=== PATIENT | female | born 1960 | race African-American/Black ===

== ENCOUNTER 2018-03-23 13:45 | Outpatient (CLI) | payer OTHER | END 2018-03-23 13:46 | disposition home or self-care (01) | LOC: BICRAD 13:45 | PROVIDERS: ATTEND Internal Medicine | DX: Z02.71 Encounter for disability determination (principal) | CPT/HCPCS: 71046 ==

== ENCOUNTER 2019-07-17 15:16 | Emergency (ER) | payer SELFPAY ==
[2019-07-17] MEDS ORDERED: ISOVUE-370 76%-LOCM 1 ML ONE (15:52)
[2019-07-17 16:16] LABS: #Basophils 0.1 thou/uL (0.0-0.2); #Eosinphils 0.1 thou/uL (0.0-0.7); #Monocytes 0.6 thou/uL (0.11-0.59); #Neutrophils 3.3 thou/uL (1.40-6.50); %Basophils 1.2 % (0.0-1.0); %Eosinophils 1.3 % (0.0-10.0); %Lymphocytes 33.4 % (21.0-51.0); %Neutrophils 54.1 % (42.0-75.0); Hemoglobin 14.4 g/dL (12.0-16.0); Mean Corpuscular HGB CONC 33.7 g/dL (32.0-36.0); Mean Corpuscular Hemoglobin 30.6 pg (27.0-31.0); Mean Corpuscular Volume 90.6 fL (78.0-98.0); Mean Platelet Volume 5.3 fL (7.4-10.4); Platelet Count 290 thou/uL (130-400); RBC Distribution Width 12.1 % (11.5-14.5); Red Blood Cell (RBC) Count 4.71 mill/uL (4.20-5.40); White Blood Cell (WBC) Count 6.1 thou/uL (4.8-10.8)
[2019-07-17] MEDS ORDERED: Fluorescein Opthalmic Strip ONE (16:33)
[2019-07-17] MEDS ORDERED: Proparacaine 0.5% Opth 15 ML BOT ONE (16:33)
[2019-07-17 16:39] LABS: ALT (SGPT) 18 U/L (8-55); AST (SGOT) 26 U/L (5-34); Albumin 4.4 g/dL (3.4-4.8); Alkaline Phosphatase 74 U/L (40-150); Anion Gap 6 mmol/L (10-20); BUN (Urea Nitrogen) 12 mg/dL (9.8-20.1); Bilirubin, Total 0.4 mg/dL (0.2-1.2); Calc. Creatinine Clearance 0 mL/min (70-130); Calcium 10.3 mg/dL (7.8-10.44); Carbon Dioxide 30 mmol/L (23-31); Chloride 106 mmol/L (98-107); Estimated GFR-MDRD 88; Globulin 3.4 g/dL (2.4-3.5); Glucose 104 mg/dL (80-115); Lipase 66 U/L (8-78); Potassium 3.9 mmol/L (3.5-5.1); Protein, Total 7.8 g/dL (6.0-8.3); Sodium 138 mmol/L (136-145)
--- NOTE | 2019-07-17 17:15 | RAD ---
EXAM: CHEST TWO VIEWS: 07/17/19 HISTORY: Chest pain. Intermittent epigastric pain for one week. COMPARISON: 03/23/18. FINDINGS: Left ICD. Heart size is normal. The lungs are clear. IMPRESSION: No significant acute intrathoracic disease. Stable from prior study. POS: [facility]
[2019-07-17 17:42] LABS: Bilirubin Negative (Negative); Blood, Urine Trace (Negative); Clarity Clear (Clear); Glucose, Urine (Dipstick) Normal (Negative); Leukocyte Negative Leu/uL (Negative); Nitrite Negative (Negative); Protein, Urine (Dipstick) Negative (Neg-Trace); RBC/HPF 0-3 HPF (0-3); Squamous Epithelial 0-3 HPF (0-3); Urobilinogen Normal mg/dL (Less than 2); WBC/HPF 0-3 HPF (0-3)
[2019-07-17 17:43] LABS: Bacteria/HPF 1+ HPF (None Seen)
--- NOTE | 2019-07-17 17:48 | CT ---
CT abdomen and pelvis with IV contrast HISTORY: Abdomen pain. FINDINGS: Lung bases are clear. Gallbladder is surgically absent. Dystrophic calcification within the spleen in an area of decreased density is stable and may be related to remote trauma. No free air or free fluid. Mild fibroid involvement of the uterus. Degenerative changes lumbar spine. Appendix is not inflamed. Rectal and distal sigmoid colon are distended with fecal material. Prominent fecal material throughout the right colon and remainder of the colon also. IMPRESSION: No evidence of bowel obstruction or inflammation. Constipation. Status post cholecystectomy. Chronic-type findings are stable.
[2019-07-17] MEDS ORDERED: Magnesium Citrate 300 ML BOT ONE (18:33)
== END 2019-07-17 19:56 | disposition home or self-care (01) ==
LOC: ERS 15:16
DX: K59.00 Constipation, unspecified (principal); R07.9 Chest pain, unspecified; H57.11 Ocular pain, right eye; I25.10 Atherosclerotic heart disease of native coronary artery without angina pectoris; E78.5 Hyperlipidemia, unspecified; E78.00 Pure hypercholesterolemia, unspecified; I10 Essential (primary) hypertension; Z79.82 Long term (current) use of aspirin; Z79.899 Other long term (current) drug therapy
CPT/HCPCS: 36415; 71046; 74177; 80053; 81003; 81015; 83690; 84484; 85025; 93005; Q9966

== ENCOUNTER 2020-05-22 13:31 | Emergency (ER) | payer SELFPAY ==
[2020-05-22] MEDS ORDERED: Iopamidol 370 76% 100 ML VIAL ONE (13:45)
[2020-05-22 14:24] LABS: #Basophils 0.1 thou/uL (0.0-0.2); #Eosinphils 0.1 thou/uL (0.0-0.7); #Lymphocytes 1.4 thou/uL (1.20-3.40); #Monocytes 0.7 thou/uL (0.11-0.59); #Neutrophils 3.5 thou/uL (1.40-6.50); %Eosinophils 2.2 % (0.0-10.0); %Lymphocytes 24.8 % (21.0-51.0); %Monocytes 11.6 % (0.0-10.0); %Neutrophils 60.4 % (42.0-75.0); Hemoglobin 14.6 g/dL (12.0-16.0); Mean Corpuscular Hemoglobin 28.3 pg (27.0-31.0); Mean Corpuscular Volume 88.2 fL (78.0-98.0); Mean Platelet Volume 5.9 fL (7.4-10.4); Platelet Count 331 thou/uL (130-400); RBC Distribution Width 12.6 % (11.5-14.5); Red Blood Cell (RBC) Count 5.16 mill/uL (4.20-5.40); White Blood Cell (WBC) Count 5.7 thou/uL (4.8-10.8)
[2020-05-22 14:47] LABS: ALT (SGPT) 17 U/L (8-55); AST (SGOT) 27 U/L (5-34); Albumin 4.3 g/dL (3.4-4.8); Alkaline Phosphatase 90 U/L (40-110); Anion Gap 11 mmol/L (10-20); BUN (Urea Nitrogen) 7 mg/dL (9.8-20.1); Bilirubin, Total 0.6 mg/dL (0.2-1.2); Calc. Creatinine Clearance 0 mL/min (70-130); Calcium 9.9 mg/dL (7.8-10.44); Carbon Dioxide 27 mmol/L (23-31); Chloride 105 mmol/L (98-107); Estimated GFR-MDRD 85; Globulin 4.1 g/dL (2.4-3.5); Glucose 103 mg/dL (80-115); Lipase 55 U/L (8-78); Potassium 3.9 mmol/L (3.5-5.1); Protein, Total 8.4 g/dL (6.0-8.3); Sodium 139 mmol/L (136-145)
[2020-05-22 15:31] LABS: Bacteria/HPF 4+ HPF (None Seen); Bilirubin Negative (Negative); Blood, Urine Trace (Negative); Clarity Turbid (Clear); Glucose, Urine (Dipstick) Normal (Negative); Ketone, Urine Negative (Negative); Leukocyte 25 Leu/uL (Negative); Nitrite Negative (Negative); Protein, Urine (Dipstick) Negative (Neg-Trace); RBC/HPF 0-3 HPF (0-3); Specific Gravity, Urine 1.009 (1.002-1.036); Urobilinogen Normal mg/dL (Less than 2); pH, Urine 5.5 (5.0-9.0)
--- NOTE | 2020-05-22 16:14 | CT ---
CT ABDOMEN AND PELVIS WITH IV CONTRAST: 05/22/20 HISTORY: Abdominal pain, left sided. COMPARISON: 07/02/19. There are mild atelectatic changes in the lung bases. The patient is post cholecystectomy. The liver, pancreas, adrenal glands and kidneys are normal. Dystrophic calcifications in the spleen i n an area of decreased density is stable. No free air, free fluid or lymphadenopathy is seen in the abdomen or pelvis. The small bowel loops ar e not abnormally dilated. There is colonic diverticulosis without pericolonic inflammatory changes. A fibroid uterus is again noted. There are vascular calcifications without evidence of aneurysmal dilatation of the abdominal aorta. T here are degenerative changes in the spine. A normal appearing appendix is present. A small hiatal he rnia is present. IMPRESSION: No acute process. POS: AUTUMN
== END 2020-05-22 16:32 | disposition home or self-care (01) ==
LOC: ERS 13:31
DX: R10.9 Unspecified abdominal pain (principal); R10.812 Left upper quadrant abdominal tenderness; R10.814 Left lower quadrant abdominal tenderness; I25.10 Atherosclerotic heart disease of native coronary artery without angina pectoris; E78.5 Hyperlipidemia, unspecified; E78.00 Pure hypercholesterolemia, unspecified; I10 Essential (primary) hypertension; Z79.82 Long term (current) use of aspirin; Z79.899 Other long term (current) drug therapy
CPT/HCPCS: 36415; 74177; 80053; 81003; 81015; 83605; 83690; 85025; 93005; Q9967

== ENCOUNTER 2021-04-15 13:09 | Emergency (ER) | payer SELFPAY ==
[~2021-04-15 13:09] MED LIST: Iopamidol-370 76% 500 ML 1 ML ONE
[2021-04-15 14:46] LABS: #Lymphocytes 0.8 thou/uL (1.20-3.40); #Monocytes 0.5 thou/uL (0.11-0.59); #Neutrophils 3.5 thou/uL (1.40-6.50); %Basophils 0.1 % (0.0-1.0); %Eosinophils 0.1 % (0.0-10.0); %Lymphocytes 16.1 % (21.0-51.0); %Monocytes 9.8 % (0.0-10.0); Hemoglobin 13.7 g/dL (12.0-16.0); Mean Corpuscular Hemoglobin 28.4 pg (27.0-31.0); Mean Corpuscular Volume 88.7 fL (78.0-98.0); Mean Platelet Volume 5.9 fL (7.4-10.4); Platelet Count 202 thou/uL (130-400); RBC Distribution Width 11.9 % (11.5-14.5); Red Blood Cell (RBC) Count 4.82 mill/uL (4.20-5.40); White Blood Cell (WBC) Count 4.7 thou/uL (4.8-10.8)
[2021-04-15 15:09] LABS: ALT (SGPT) 19 U/L (8-55); AST (SGOT) 47 U/L (5-34); Alkaline Phosphatase 71 U/L (40-110); Anion Gap 14 mmol/L (10-20); BUN (Urea Nitrogen) 11 mg/dL (9.8-20.1); Bilirubin, Total 0.9 mg/dL (0.2-1.2); Calc. Creatinine Clearance 0 mL/min (70-130); Calcium 9.2 mg/dL (7.8-10.44); Carbon Dioxide 23 mmol/L (23-31); Chloride 105 mmol/L (98-107); Globulin 3.7 g/dL (2.4-3.5); Glucose 95 mg/dL (80-115); Lipase 54 U/L (8-78); Protein, Total 7.7 g/dL (5.8-8.1); Sodium 138 mmol/L (136-145)
[2021-04-15] MEDS ORDERED: Fentanyl 100 MCG/2 ML VIAL ONE (15:55)
[2021-04-15 16:06] LABS: Bilirubin Small (Negative); Blood, Urine Large (Negative); Glucose, Urine (Dipstick) Negative (Negative); Ketone, Urine 15 mg/dL (Negative); Leukocyte Negative (Negative); Nitrite Negative (Negative); Protein, Urine (Dipstick) Trace mg/dL (Neg-Trace); Specific Gravity, Urine 1.025 (1.005-1.030); pH, Urine 5.5 (5.0-9.0)
[2021-04-15 16:20] LABS: Clarity Hazy (Clear); WBC/HPF 0-3 HPF (0-3)
[2021-04-15 16:21] LABS: Bacteria/HPF 1+ HPF (None Seen); Squamous Epithelial 21-50 HPF (0-3)
== END 2021-04-15 17:53 | disposition home or self-care (01) ==
LOC: ERS 13:09
DX: R10.32 Left lower quadrant pain (principal); R50.9 Fever, unspecified; R30.0 Dysuria; R61 Generalized hyperhidrosis; I25.10 Atherosclerotic heart disease of native coronary artery without angina pectoris; I10 Essential (primary) hypertension; E78.5 Hyperlipidemia, unspecified; E78.00 Pure hypercholesterolemia, unspecified; Z79.82 Long term (current) use of aspirin; Z79.899 Other long term (current) drug therapy
CPT/HCPCS: 36415; 51701; 74177; 80053; 81003; 81015; 83690; 85025; 87086; 93005; 96374; J3010; Q9967

== ENCOUNTER 2021-04-17 00:34 | Emergency (ER) | payer SELFPAY ==
[2021-04-17 01:15] LABS: #Lymphocytes 0.8 thou/uL (1.20-3.40); #Monocytes 0.3 thou/uL (0.11-0.59); #Neutrophils 3.6 thou/uL (1.40-6.50); %Basophils 0.5 % (0.0-1.0); %Eosinophils 0.1 % (0.0-10.0); %Lymphocytes 16.4 % (21.0-51.0); %Monocytes 6.7 % (0.0-10.0); %Neutrophils 76.4 % (42.0-75.0); Hemoglobin 13.6 g/dL (12.0-16.0); Mean Corpuscular Hemoglobin 30.1 pg (27.0-31.0); Mean Corpuscular Volume 88.5 fL (78.0-98.0); Platelet Count 196 thou/uL (130-400); Red Blood Cell (RBC) Count 4.53 mill/uL (4.20-5.40); White Blood Cell (WBC) Count 4.7 thou/uL (4.8-10.8)
[2021-04-17] MEDS ORDERED: Acetaminophen 500 MG TAB ONE (01:17)
[2021-04-17 01:21] LABS: Bacteria/HPF None Seen HPF (None Seen); Bilirubin Negative (Negative); Blood, Urine 3+ (Negative); Clarity Clear (Clear); Glucose, Urine (Dipstick) Normal (Negative); Ketone, Urine 80 mg/dL (Negative); Leukocyte 25 Leu/uL (Negative); Nitrite Negative (Negative); Protein, Urine (Dipstick) 30 mg/dL (Neg-Trace); RBC/HPF Greater than 50 HPF (0-3); Specific Gravity, Urine 1.026 (1.002-1.036); Squamous Epithelial 0-3 HPF (0-3); Urobilinogen 6 mg/dL (Less than 2); pH, Urine 5.5 (5.0-9.0)
[2021-04-17 01:34] LABS: ALT (SGPT) 23 U/L (8-55); AST (SGOT) 61 U/L (5-34); Albumin 3.8 g/dL (3.4-4.8); Alkaline Phosphatase 62 U/L (40-110); Anion Gap 16 mmol/L (10-20); BUN (Urea Nitrogen) 10 mg/dL (9.8-20.1); Calc. Creatinine Clearance 0 mL/min (70-130); Carbon Dioxide 20 mmol/L (23-31); Chloride 106 mmol/L (98-107); Globulin 3.5 g/dL (2.4-3.5); Glucose 103 mg/dL (80-115); Lipase 49 U/L (8-78); Protein, Total 7.3 g/dL (5.8-8.1); Sodium 138 mmol/L (136-145)
== END 2021-04-17 04:51 | disposition home or self-care (01) ==
LOC: ERS 00:34
DX: N39.0 Urinary tract infection, site not specified (principal); R07.89 Other chest pain; E78.5 Hyperlipidemia, unspecified; E78.00 Pure hypercholesterolemia, unspecified; I10 Essential (primary) hypertension
CPT/HCPCS: 36415; 74022; 74176; 80053; 81003; 81015; 83605; 83690; 84484; 85025; 87040; 87086; 93005

== ENCOUNTER 2021-04-18 12:58 | Inpatient (IN) | payer SELFPAY ==
[2021-04-18] MEDS ORDERED: Cefepime 2 GM VIAL ONE (14:14)
[2021-04-18] MEDS ORDERED: Azithromycin 500 MG VIAL ONE (14:14)
[2021-04-18] MEDS ORDERED: cefTRIAXone\\ROCEPHIN 2 GM VIAL ONE (14:24)
[2021-04-18 14:33] LABS: ALT (SGPT) 76 U/L (8-55); AST (SGOT) 247 U/L (5-34); Albumin 4.3 g/dL (3.4-4.8); Alkaline Phosphatase 75 U/L (40-110); Anion Gap 21 mmol/L (10-20); BUN (Urea Nitrogen) 16 mg/dL (9.8-20.1); Calc. Creatinine Clearance 0 mL/min (70-130); Carbon Dioxide 20 mmol/L (23-31); Chloride 104 mmol/L (98-107); Globulin 4.9 g/dL (2.4-3.5); Glucose 139 mg/dL (80-115); Lipase 44 U/L (8-78); Potassium 3.9 mmol/L (3.5-5.1); Protein, Total 9.2 g/dL (5.8-8.1); Sodium 141 mmol/L (136-145)
[2021-04-18 14:48] LABS: CK (CPK) 16583 U/L (29-168)
[2021-04-18 15:09] LABS: Hemoglobin 17.2 g/dL (12.0-16.0); Mean Corpuscular HGB CONC 31.8 g/dL (32.0-36.0); Mean Corpuscular Hemoglobin 28.4 pg (27.0-31.0); Mean Corpuscular Volume 89.3 fL (78.0-98.0); Mean Platelet Volume 6.3 fL (7.4-10.4); Platelet Count 211 thou/uL (130-400); RBC Distribution Width 12.4 % (11.5-14.5); Red Blood Cell (RBC) Count 6.07 mill/uL (4.20-5.40); White Blood Cell (WBC) Count 7.9 thou/uL (4.8-10.8)
[2021-04-18 15:11] LABS: #Basophils 0.1 thou/uL (0.0-0.2); #Lymphocytes 0.5 thou/uL (1.20-3.40); #Monocytes 0.6 thou/uL (0.11-0.59); #Neutrophils 6.7 thou/uL (1.40-6.50); %Basophils 1.2 % (0.0-1.0); %Eosinophils 0.5 % (0.0-10.0); %Lymphocytes 5.9 % (21.0-51.0); %Neutrophils 85.4 % (42.0-75.0)
[2021-04-18] MEDS ORDERED: Aspirin Chewable 81 MG TAB ONE (15:21)
[2021-04-18] MEDS ORDERED: Ondansetron ODT 4 MG TAB PO PRN (17:12)
[2021-04-18] MEDS ORDERED: Ondansetron PF 4 MG/2 ML Vial IVP PRN (17:12)
[2021-04-18] MEDS ORDERED: Senokot S 8.6-50 MG TAB PO PRN (17:12)
[2021-04-18] MEDS ORDERED: Acetaminophen 650 MG Suppository PR PRN (17:12)
[2021-04-18 17:45] LABS: Lactic Acid 1.3 mmol/L (0.5-2.2)
[2021-04-18 17:54] LABS: Troponin I 0.247 ng/mL (< 0.028)
[2021-04-18 18:15] LABS: Magnesium 1.7 mg/dL (1.6-2.6); Phosphorus 2.8 mg/dL (2.3-4.7)
[2021-04-18] MEDS: Lactated Ringer's 1,000 ML IV SCH (18:45)
[2021-04-18 20:28] LABS: Troponin I 0.215 ng/mL (< 0.028)
[2021-04-18 21:43] LABS: INR-International Normal Ratio 1.1; PTT 30.3 sec (22.9-36.1); Prothrombin Time 14.6 sec (12.0-14.7)
[2021-04-18 21:57] LABS: Anion Gap 14 mmol/L (10-20); BUN (Urea Nitrogen) 20 mg/dL (9.8-20.1); Calc. Creatinine Clearance 47 mL/min (70-130); Calcium 7.6 mg/dL (7.8-10.44); Carbon Dioxide 19 mmol/L (23-31); Chloride 111 mmol/L (98-107); Glucose 120 mg/dL (80-115); Potassium 3.5 mmol/L (3.5-5.1); Sodium 140 mmol/L (136-145)
[2021-04-18 22:00] LABS: CKMB 158.6 ng/mL (0-6.6); Critical Call CKMB RESULT DECREASING
[2021-04-18 22:22] LABS: CK (CPK) 16305 U/L (29-168)
[2021-04-18 22:30] LABS: #Lymphocytes 0.6 thou/uL (1.20-3.40); #Monocytes 0.7 thou/uL (0.11-0.59); #Neutrophils 6.3 thou/uL (1.40-6.50); %Basophils 0.1 % (0.0-1.0); %Lymphocytes 7.6 % (21.0-51.0); %Monocytes 8.6 % (0.0-10.0); %Neutrophils 83.7 % (42.0-75.0); Hemoglobin 13.4 g/dL (12.0-16.0); Mean Corpuscular HGB CONC 31.9 g/dL (32.0-36.0); Mean Corpuscular Hemoglobin 28.2 pg (27.0-31.0); Mean Corpuscular Volume 88.3 fL (78.0-98.0); Mean Platelet Volume 6.1 fL (7.4-10.4); Platelet Count 214 thou/uL (130-400); RBC Distribution Width 12.1 % (11.5-14.5); Red Blood Cell (RBC) Count 4.75 mill/uL (4.20-5.40); White Blood Cell (WBC) Count 7.5 thou/uL (4.8-10.8)
[2021-04-19] MEDS: Acetaminophen 325 MG TAB PO PRN ×2 (02:20→11:32)
[2021-04-19] MEDS: Lactated Ringer's 1,000 ML IV SCH ×4 (02:25→18:00)
[2021-04-19 03:28] LABS: Amphetamine Not Detected (NotDetected); Barbiturates Screen Not Detected (NotDetected); Benzodiazepine Screen Not Detected (NotDetected); Cocaine Metabolite Screen Not Detected (NotDetected); Medtox Control Line Valid? VALID (VALID); Medtox Reader # READER 4; Methadone Not Detected (NotDetected); Methamphetamine Not Detected (NotDetected); Opiate Screen Not Detected (NotDetected); Oxycodone Screen Not Detected (NotDetected); Phencyclidine (PCP) Not Detected (NotDetected); THC/Cannabinoid Screen Not Detected (NotDetected); Tricyclic Screen Not Detected (NotDetected)
[2021-04-19 05:34] LABS: #Lymphocytes 1.1 thou/uL (1.20-3.40); #Neutrophils 8.7 thou/uL (1.40-6.50); %Basophils 0.1 % (0.0-1.0); %Eosinophils 0.1 % (0.0-10.0); %Lymphocytes 10.1 % (21.0-51.0); %Monocytes 9.2 % (0.0-10.0); %Neutrophils 80.6 % (42.0-75.0); Hemoglobin 13.9 g/dL (12.0-16.0); Mean Corpuscular HGB CONC 31.3 g/dL (32.0-36.0); Mean Corpuscular Hemoglobin 27.9 pg (27.0-31.0); Mean Corpuscular Volume 89.1 fL (78.0-98.0); Mean Platelet Volume 6.5 fL (7.4-10.4); Platelet Count 221 thou/uL (130-400); RBC Distribution Width 12.4 % (11.5-14.5); Red Blood Cell (RBC) Count 4.99 mill/uL (4.20-5.40); White Blood Cell (WBC) Count 10.9 thou/uL (4.8-10.8)
[2021-04-19 05:45] LABS: ALT (SGPT) 83 U/L (8-55); AST (SGOT) 305 U/L (5-34); Alkaline Phosphatase 52 U/L (40-110); Anion Gap 15 mmol/L (10-20); BUN (Urea Nitrogen) 22 mg/dL (9.8-20.1); Bilirubin, Total 0.5 mg/dL (0.2-1.2); Calc. Creatinine Clearance 41 mL/min (70-130); Calcium 8.2 mg/dL (7.8-10.44); Carbon Dioxide 17 mmol/L (23-31); Chloride 113 mmol/L (98-107); Globulin 3.4 g/dL (2.4-3.5); Glucose 109 mg/dL (80-115); Magnesium 1.7 mg/dL (1.6-2.6); Phosphorus 3.4 mg/dL (2.3-4.7); Potassium 3.4 mmol/L (3.5-5.1); Protein, Total 6.4 g/dL (5.8-8.1); Sodium 142 mmol/L (136-145)
[2021-04-19 05:57] LABS: CK (CPK) 16410 U/L (29-168)
[2021-04-19] MEDS ORDERED: Potassium Chloride 20 MEQ in Premix Bag 1 BAG IVPB SCH (06:15)
[2021-04-19] MEDS ORDERED: Magnesium 2 GM/50 ML 2 GM in Premix Bag 1 BAG IVPB SCH (06:15)
[2021-04-19] MEDS: Cyclobenzaprine 10 MG TAB PO PRN (08:47)
[2021-04-19] MEDS: Senokot S 8.6-50 MG TAB PO SCH (08:49)
[2021-04-19] MEDS: Aspirin 325 MG TAB PO SCH (08:49)
[2021-04-19] MEDS: Lisinopril 20 MG TAB PO SCH (08:49)
[2021-04-19] MEDS: Carvedilol 25 MG TAB PO SCH ×2 (08:49→16:56)
[2021-04-19] MEDS: Stress 600 With Zinc 1 TAB PO SCH (08:49)
[2021-04-19] MEDS: Enoxaparin Sodium 40 MG/0.4 ML SYRINGE SC SCH (08:50)
[2021-04-19 09:42] LABS: Bilirubin Negative (Negative); Blood, Urine Large (Negative); Glucose, Urine (Dipstick) Negative (Negative); Ketone, Urine Trace mg/dL (Negative); Leukocyte Negative (Negative); Nitrite Negative (Negative); Protein, Urine (Dipstick) 100 mg/dL (Neg-Trace); Specific Gravity, Urine 1.015 (1.005-1.030); Urobilinogen 0.2 mg/dL (Less than 2); pH, Urine 5.5 (5.0-9.0)
[2021-04-19 09:46] LABS: Clarity Clear (Clear)
[2021-04-19 09:48] LABS: Bacteria/HPF 3+ HPF (None Seen); RBC/HPF 0-3 HPF (0-3); Squamous Epithelial 0-3 HPF (0-3); WBC/HPF 0-3 HPF (0-3)
[2021-04-19 09:50] LABS: Urine Culture Reflex Yes Yes
[2021-04-19] MEDS: traMADol HCl 50 MG TAB PO PRN ×2 (12:37→16:56)
[2021-04-19] MEDS: Acetaminophen 500 MG TAB PO SCH ×2 (13:00→19:22)
[2021-04-19 13:41] LABS: Anion Gap 15 mmol/L (10-20); BUN (Urea Nitrogen) 21 mg/dL (9.8-20.1); Calc. Creatinine Clearance 38 mL/min (70-130); Calcium 8.3 mg/dL (7.8-10.44); Carbon Dioxide 15 mmol/L (23-31); Chloride 114 mmol/L (98-107); Glucose 132 mg/dL (80-115); Potassium 3.7 mmol/L (3.5-5.1); Sodium 140 mmol/L (136-145)
[2021-04-19] MEDS: cefTRIAXone\\ROCEPHIN 1 GM in Sodium Chloride 0.9% 100 ML IVPB SCH (14:29)
[2021-04-19] MEDS: Azithromycin 500 MG in Sodium Chloride 0.9% 250 ML 250 ML IVPB SCH (15:28)
[2021-04-19] MEDS: Morphine 2 MG/ML VIAL SLOW IVP PRN (21:22)
[2021-04-20] MEDS: Lactated Ringer's 1,000 ML IV SCH ×4 (01:27→18:19)
[2021-04-20] MEDS: Acetaminophen 500 MG TAB PO SCH ×3 (03:49→22:33)
[2021-04-20] MEDS: Morphine 2 MG/ML VIAL SLOW IVP PRN ×2 (05:04→11:34)
[2021-04-20 05:12] LABS: #Lymphocytes 0.8 thou/uL (1.20-3.40); #Monocytes 0.4 thou/uL (0.11-0.59); #Neutrophils 6.7 thou/uL (1.40-6.50); %Basophils 0.2 % (0.0-1.0); %Lymphocytes 10.1 % (21.0-51.0); %Monocytes 4.9 % (0.0-10.0); %Neutrophils 84.8 % (42.0-75.0); Hemoglobin 13.4 g/dL (12.0-16.0); Mean Corpuscular HGB CONC 31.5 g/dL (32.0-36.0); Mean Corpuscular Volume 88.8 fL (78.0-98.0); Mean Platelet Volume 6.2 fL (7.4-10.4); Platelet Count 242 thou/uL (130-400); RBC Distribution Width 12.5 % (11.5-14.5); Red Blood Cell (RBC) Count 4.77 mill/uL (4.20-5.40); White Blood Cell (WBC) Count 7.9 thou/uL (4.8-10.8)
[2021-04-20 05:32] LABS: Anion Gap 10 mmol/L (10-20); BUN (Urea Nitrogen) 17 mg/dL (9.8-20.1); Calc. Creatinine Clearance 51 mL/min (70-130); Calcium 8.5 mg/dL (7.8-10.44); Carbon Dioxide 21 mmol/L (23-31); Chloride 115 mmol/L (98-107); Glucose 108 mg/dL (80-115); Magnesium 1.8 mg/dL (1.6-2.6); Potassium 3.6 mmol/L (3.5-5.1); Sodium 142 mmol/L (136-145)
[2021-04-20 06:06] LABS: CK (CPK) 9551 U/L (29-168)
[2021-04-20] MEDS: Lisinopril 20 MG TAB PO SCH (08:50)
[2021-04-20] MEDS: Aspirin 325 MG TAB PO SCH (08:51)
[2021-04-20] MEDS: Enoxaparin Sodium 40 MG/0.4 ML SYRINGE SC SCH (08:51)
[2021-04-20] MEDS: Senokot S 8.6-50 MG TAB PO SCH (08:51)
[2021-04-20] MEDS: Carvedilol 25 MG TAB PO SCH ×2 (08:51→15:55)
[2021-04-20] MEDS: Stress 600 With Zinc 1 TAB PO SCH (08:52)
[2021-04-20] MEDS: traMADol HCl 50 MG TAB PO PRN ×2 (09:22→15:54)
[2021-04-20 11:50] LABS: Syphilis Antibody Nonreactive (Nonreactive); Syphilis Antibody Index 0.05 S/CO (<1.00 Non-Reactive)
[2021-04-20 11:51] LABS: HIV (1/2) Antibody/Antigen Non-Reactive (NonReactive); HIV 1/2 INDEX 0.12 S/CO (<1.00)
[2021-04-20] MEDS: cefTRIAXone\\ROCEPHIN 1 GM in Sodium Chloride 0.9% 100 ML IVPB SCH (13:47)
[2021-04-20] MEDS: Cyclobenzaprine 10 MG TAB PO PRN (13:47)
[2021-04-20] MEDS ORDERED: Clopidogrel Bisulfate 300 MG TAB PO SCH (15:15)
[2021-04-20] MEDS: Azithromycin 500 MG in Sodium Chloride 0.9% 250 ML 250 ML IVPB SCH (15:51)
[2021-04-20] MEDS ORDERED: Cyclobenzaprine 10 MG TAB PO PRN (17:41)
[2021-04-20] MEDS: Atorvastatin Calcium 40 MG TAB PO SCH (21:57)
[2021-04-21] MEDS: Lactated Ringer's 1,000 ML IV SCH ×3 (00:38→19:32)
[2021-04-21] MEDS: Acetaminophen 500 MG TAB PO SCH ×3 (04:49→21:05)
[2021-04-21 05:00] LABS: ALT (SGPT) 66 U/L (8-55); AST (SGOT) 248 U/L (5-34); Albumin 2.6 g/dL (3.4-4.8); Alkaline Phosphatase 50 U/L (40-110); Anion Gap 12 mmol/L (10-20); BUN (Urea Nitrogen) 10 mg/dL (9.8-20.1); Bilirubin, Total 0.5 mg/dL (0.2-1.2); Calc. Creatinine Clearance 73 mL/min (70-130); Calcium 8.5 mg/dL (7.8-10.44); Carbon Dioxide 25 mmol/L (23-31); Chloride 109 mmol/L (98-107); Globulin 3.1 g/dL (2.4-3.5); Glucose 94 mg/dL (80-115); Magnesium 1.5 mg/dL (1.6-2.6); Potassium 3.3 mmol/L (3.5-5.1); Protein, Total 5.7 g/dL (5.8-8.1); Sodium 143 mmol/L (136-145)
[2021-04-21 05:12] LABS: CK (CPK) 6048 U/L (29-168)
[2021-04-21 06:28] LABS: Band 21 % (5-11); Hemoglobin 12.7 g/dL (12.0-16.0); Lymphocytes 6 % (21-51); MDiff Complete? YES; Mean Corpuscular Hemoglobin 30.2 pg (27.0-31.0); Mean Platelet Volume 6.5 fL (7.4-10.4); Monocytes 1 % (0-10); Neutrophil 71 % (42-75); Platelet Count 213 thou/uL (130-400); RBC Distribution Width 12.5 % (11.5-14.5); Reactive Lymphocytes 1 % (0-10); Red Blood Cell (RBC) Count 4.19 mill/uL (4.20-5.40); White Blood Cell (WBC) Count 8.7 thou/uL (4.8-10.8)
[2021-04-21] MEDS ORDERED: Magnesium Sulfate 2 GM in Sodium Chloride 0.9% 100 ML IVPB SCH (06:45)
[2021-04-21] MEDS ORDERED: Magnesium 2 GM/50 ML 2 GM in Premix Bag 1 BAG IVPB SCH (07:00)
[2021-04-21] MEDS: Polyethylene Glycol 3350 17 GM Packet PO SCH (08:37)
[2021-04-21] MEDS: Senokot S 8.6-50 MG TAB PO SCH (08:38)
[2021-04-21] MEDS: Lisinopril 20 MG TAB PO SCH (08:42)
[2021-04-21] MEDS: Aspirin 325 MG TAB PO SCH (08:44)
[2021-04-21] MEDS: Potassium Chloride 20 MEQ in Premix Bag 1 BAG IVPB SCH ×2 (08:44→11:22)
[2021-04-21] MEDS: Clopidogrel Bisulfate 75 MG TAB PO SCH (08:45)
[2021-04-21] MEDS: Carvedilol 25 MG TAB PO SCH ×2 (08:45→16:27)
[2021-04-21] MEDS: Enoxaparin Sodium 40 MG/0.4 ML SYRINGE SC SCH (08:47)
[2021-04-21] MEDS: Stress 600 With Zinc 1 TAB PO SCH (08:47)
[2021-04-21] MEDS: Gabapentin 100 MG CAP PO SCH ×3 (09:53→21:06)
[2021-04-21] MEDS: traMADol HCl 50 MG TAB PO PRN ×2 (11:23→16:27)
[2021-04-21] MEDS: cefTRIAXone\\ROCEPHIN 1 GM in Sodium Chloride 0.9% 100 ML IVPB SCH (13:15)
[2021-04-21 13:25] LABS: SARS-CoV-2 PCR by NAA DETECTED (NotDetected)
[2021-04-21] MEDS: Azithromycin 500 MG in Sodium Chloride 0.9% 250 ML 250 ML IVPB SCH (15:10)
[2021-04-21] MEDS: Atorvastatin Calcium 40 MG TAB PO SCH (21:06)
[2021-04-22] MEDS: Lactated Ringer's 1,000 ML IV SCH ×2 (03:00→17:35)
[2021-04-22] MEDS: Acetaminophen 500 MG TAB PO SCH ×4 (04:50→21:27)
[2021-04-22 05:42] LABS: ALT (SGPT) 66 U/L (8-55); AST (SGOT) 237 U/L (5-34); Albumin 2.6 g/dL (3.4-4.8); Alkaline Phosphatase 55 U/L (40-110); Anion Gap 11 mmol/L (10-20); BUN (Urea Nitrogen) 10 mg/dL (9.8-20.1); Bilirubin, Total 0.6 mg/dL (0.2-1.2); CK (CPK) 3389 U/L (29-168); Calc. Creatinine Clearance 85 mL/min (70-130); Calcium 8.6 mg/dL (7.8-10.44); Carbon Dioxide 26 mmol/L (23-31); Chloride 109 mmol/L (98-107); Globulin 3.3 g/dL (2.4-3.5); Glucose 96 mg/dL (80-115); Magnesium 1.7 mg/dL (1.6-2.6); Potassium 3.7 mmol/L (3.5-5.1); Protein, Total 5.9 g/dL (5.8-8.1); Sodium 142 mmol/L (136-145)
[2021-04-22 05:52] LABS: Band 19 % (5-11); Hemoglobin 12.6 g/dL (12.0-16.0); Lymphocytes 3 % (21-51); MDiff Complete? YES; Mean Corpuscular HGB CONC 32.8 g/dL (32.0-36.0); Mean Corpuscular Hemoglobin 29.4 pg (27.0-31.0); Mean Corpuscular Volume 89.7 fL (78.0-98.0); Mean Platelet Volume 6.5 fL (7.4-10.4); Monocytes 4 % (0-10); Neutrophil 74 % (42-75); Platelet Count 244 thou/uL (130-400); RBC Distribution Width 12.6 % (11.5-14.5); White Blood Cell (WBC) Count 9.8 thou/uL (4.8-10.8)
[2021-04-22] MEDS ORDERED: Nitroglycerin 2% Ointment 1 INCH/1 GM Packet TOP PRN (09:07)
[2021-04-22] MEDS: Lisinopril 20 MG TAB PO SCH (09:12)
[2021-04-22] MEDS: Aspirin 325 MG TAB PO SCH (09:12)
[2021-04-22] MEDS: Senokot S 8.6-50 MG TAB PO SCH (09:12)
[2021-04-22] MEDS: Clopidogrel Bisulfate 75 MG TAB PO SCH (09:12)
[2021-04-22] MEDS: Stress 600 With Zinc 1 TAB PO SCH (09:12)
[2021-04-22] MEDS: Gabapentin 100 MG CAP PO SCH ×3 (09:13→21:26)
[2021-04-22] MEDS: Carvedilol 25 MG TAB PO SCH ×2 (09:13→16:26)
[2021-04-22] MEDS: Polyethylene Glycol 3350 17 GM Packet PO SCH (09:14)
[2021-04-22 09:22] LABS: Troponin I 0.029 ng/mL (< 0.028)
[2021-04-22] MEDS ORDERED: Dexamethasone 10 MG in Sodium Chloride 0.9% 50 ML IVPB SCH (10:00)
[2021-04-22 12:09] LABS: ANA Symphony (Qualitative) Negative (Negative); ANA Symphony (Quantitative) 0.3 Ratio (< 0.7 Negative); dsDNA IgG Antibody 0.9 IU/mL (<10 Negative)
[2021-04-22] MEDS: Enoxaparin Sodium 40 MG/0.4 ML SYRINGE SC SCH ×2 (14:23→14:57)
[2021-04-22] MEDS: cefTRIAXone\\ROCEPHIN 1 GM in Sodium Chloride 0.9% 100 ML IVPB SCH ×3 (14:25→22:06)
[2021-04-22 16:16] LABS: CSF, Glucose 60 mg/dl (40-70); CSF, Protein 27 mg/dL (15-40)
[2021-04-22] MEDS: Azithromycin 500 MG in Sodium Chloride 0.9% 250 ML 250 ML IVPB SCH ×2 (16:26→17:35)
[2021-04-22 16:33] LABS: CSF RBC Count - Manual 316 /cu.mm (None Seen); CSF Source CSF; CSF WBC/NonHematics Count-Man 0 /cu.mm (0-5); Clarity Clear (Clear); Tube # 2
[2021-04-22] MEDS: Atorvastatin Calcium 40 MG TAB PO SCH ×2 (21:27→22:06)
[2021-04-23] MEDS: hydrALAZINE 20 MG/ML VIAL SLOW IVP PRN ×2 (00:59→16:29)
[2021-04-23] MEDS: Acetaminophen 500 MG TAB PO SCH ×3 (03:59→22:03)
[2021-04-23] MEDS: Lactated Ringer's 1,000 ML IV SCH (05:23)
[2021-04-23 05:33] LABS: AST (SGOT) 222 U/L (5-34); Anion Gap 12 mmol/L (10-20); Bilirubin, Total 0.6 mg/dL (0.2-1.2); Calcium 9.2 mg/dL (7.8-10.44); Carbon Dioxide 27 mmol/L (23-31); Chloride 109 mmol/L (98-107); Globulin 3.7 g/dL (2.4-3.5); Potassium 3.7 mmol/L (3.5-5.1); Protein, Total 6.3 g/dL (5.8-8.1); Sodium 144 mmol/L (136-145)
[2021-04-23 05:34] LABS: ALT (SGPT) 69 U/L (8-55); Albumin 2.6 g/dL (3.4-4.8); Alkaline Phosphatase 60 U/L (40-110); BUN (Urea Nitrogen) 12 mg/dL (9.8-20.1); CK (CPK) 2210 U/L (29-168); Calc. Creatinine Clearance 85 mL/min (70-130); Glucose 130 mg/dL (80-115); Magnesium 1.5 mg/dL (1.6-2.6)
[2021-04-23] MEDS ORDERED: Magnesium 2 GM/50 ML 2 GM in Premix Bag 1 BAG IVPB SCH (09:15)
[2021-04-23] MEDS: Gabapentin 100 MG CAP PO SCH ×3 (09:59→22:04)
[2021-04-23] MEDS: Clopidogrel Bisulfate 75 MG TAB PO SCH (10:00)
[2021-04-23] MEDS: Lisinopril 20 MG TAB PO SCH (10:00)
[2021-04-23] MEDS: Carvedilol 25 MG TAB PO SCH ×2 (10:00→16:07)
[2021-04-23] MEDS: Enoxaparin Sodium 40 MG/0.4 ML SYRINGE SC SCH (10:01)
[2021-04-23] MEDS: Aspirin 325 MG TAB PO SCH (10:01)
[2021-04-23] MEDS: Senokot S 8.6-50 MG TAB PO SCH (10:01)
[2021-04-23] MEDS: Polyethylene Glycol 3350 17 GM Packet PO SCH (10:04)
[2021-04-23] MEDS: Dexamethasone 4 mg/ml Vial SLOW IVP SCH (10:05)
[2021-04-23] MEDS: Stress 600 With Zinc 1 TAB PO SCH (10:08)
[2021-04-23] MEDS ORDERED: Amlodipine 5 MG TAB PO SCH (11:30)
[2021-04-23 22:00] LABS: SARS-CoV-2 IgG Ab Reactive (NonReactive); SARS-CoV-2 IgG Index 5.84 S/CO (< 1.40)
[2021-04-23] MEDS: Atorvastatin Calcium 40 MG TAB PO SCH (22:04)
[2021-04-24] MEDS: Atorvastatin Calcium 40 MG TAB PO SCH ×2 (02:13→22:18)
[2021-04-24] MEDS: Acetaminophen 500 MG TAB PO SCH ×4 (02:13→22:17)
[2021-04-24 05:46] LABS: AST (SGOT) 177 U/L (5-34); Albumin 2.7 g/dL (3.4-4.8); Alkaline Phosphatase 67 U/L (40-110); Anion Gap 12 mmol/L (10-20); BUN (Urea Nitrogen) 18 mg/dL (9.8-20.1); Bilirubin, Total 0.6 mg/dL (0.2-1.2); Calc. Creatinine Clearance 83 mL/min (70-130); Carbon Dioxide 27 mmol/L (23-31); Chloride 107 mmol/L (98-107); Globulin 3.4 g/dL (2.4-3.5); Glucose 129 mg/dL (80-115); Magnesium 1.9 mg/dL (1.6-2.6); Potassium 3.7 mmol/L (3.5-5.1); Protein, Total 6.1 g/dL (5.8-8.1); Sodium 142 mmol/L (136-145)
[2021-04-24 05:58] LABS: ALT (SGPT) 66 U/L (8-55)
[2021-04-24] MEDS ORDERED: Amlodipine 5 MG TAB PO SCH (09:00)
[2021-04-24] MEDS: Dexamethasone 4 mg/ml Vial SLOW IVP SCH (10:17)
[2021-04-24] MEDS: Carvedilol 25 MG TAB PO SCH ×3 (10:17→19:53)
[2021-04-24] MEDS: Clopidogrel Bisulfate 75 MG TAB PO SCH (10:17)
[2021-04-24] MEDS: Amlodipine 10 MG TAB PO SCH (10:17)
[2021-04-24] MEDS: Aspirin 325 MG TAB PO SCH (10:17)
[2021-04-24] MEDS: Lisinopril 20 MG TAB PO SCH (10:18)
[2021-04-24] MEDS: Gabapentin 100 MG CAP PO SCH ×3 (10:18→22:19)
[2021-04-24] MEDS: Polyethylene Glycol 3350 17 GM Packet PO SCH (10:18)
[2021-04-24] MEDS: Senokot S 8.6-50 MG TAB PO SCH (10:19)
[2021-04-24] MEDS: Stress 600 With Zinc 1 TAB PO SCH (10:19)
[2021-04-24 13:02] LABS: Hemoglobin 13.8 g/dL (12.0-16.0); Mean Corpuscular HGB CONC 32.7 g/dL (32.0-36.0); Mean Corpuscular Hemoglobin 29.2 pg (27.0-31.0); Mean Corpuscular Volume 89.2 fL (78.0-98.0); Mean Platelet Volume 6.6 fL (7.4-10.4); Platelet Count 420 thou/uL (130-400); RBC Distribution Width 12.8 % (11.5-14.5); Red Blood Cell (RBC) Count 4.75 mill/uL (4.20-5.40); White Blood Cell (WBC) Count 13.5 thou/uL (4.8-10.8)
[2021-04-24 13:20] LABS: Band 2 % (5-11); Lymphocytes 11 % (21-51); MDiff Complete? YES; Monocytes 9 % (0-10); Neutrophil 77 % (42-75); Platelet Morphology Comment Appears Increased; RBC Morphology Normal; Reactive Lymphocytes 1 % (0-10)
[2021-04-24] MEDS: Enoxaparin Sodium 40 MG/0.4 ML SYRINGE SC SCH (15:12)
[2021-04-24] MEDS: Cyclobenzaprine 10 MG TAB PO SCH ×2 (15:20→22:18)
[2021-04-25] MEDS: Acetaminophen 500 MG TAB PO SCH ×3 (06:45→21:10)
[2021-04-25] MEDS: Enoxaparin Sodium 40 MG/0.4 ML SYRINGE SC SCH (08:30)
[2021-04-25] MEDS: Polyethylene Glycol 3350 17 GM Packet PO SCH (08:30)
[2021-04-25] MEDS: Amlodipine 10 MG TAB PO SCH (08:30)
[2021-04-25] MEDS: Stress 600 With Zinc 1 TAB PO SCH (08:31)
[2021-04-25] MEDS: Cyclobenzaprine 10 MG TAB PO SCH ×3 (08:31→21:11)
[2021-04-25] MEDS: Carvedilol 25 MG TAB PO SCH ×2 (08:31→16:05)
[2021-04-25] MEDS: Aspirin 325 MG TAB PO SCH (08:31)
[2021-04-25] MEDS: Clopidogrel Bisulfate 75 MG TAB PO SCH (08:31)
[2021-04-25] MEDS: Gabapentin 100 MG CAP PO SCH ×3 (08:31→21:10)
[2021-04-25] MEDS: Senokot S 8.6-50 MG TAB PO SCH (08:31)
[2021-04-25] MEDS: Lisinopril 20 MG TAB PO SCH (08:31)
[2021-04-25] MEDS: Dexamethasone 4 mg/ml Vial SLOW IVP SCH (08:32)
[2021-04-25] MEDS ORDERED: Hydrochlorothiazide 25 MG TAB PO SCH (09:30)
[2021-04-25 09:57] LABS: #Lymphocytes 1.1 thou/uL (1.20-3.40); #Monocytes 1.6 thou/uL (0.11-0.59); #Neutrophils 10.5 thou/uL (1.40-6.50); %Basophils 0.3 % (0.0-1.0); %Eosinophils 0.2 % (0.0-10.0); %Lymphocytes 8.5 % (21.0-51.0); %Monocytes 12.2 % (0.0-10.0); %Neutrophils 78.8 % (42.0-75.0); Hemoglobin 14.3 g/dL (12.0-16.0); Mean Corpuscular HGB CONC 32.9 g/dL (32.0-36.0); Mean Corpuscular Hemoglobin 29.3 pg (27.0-31.0); Mean Corpuscular Volume 89.1 fL (78.0-98.0); Mean Platelet Volume 6.6 fL (7.4-10.4); Platelet Count 451 thou/uL (130-400); RBC Distribution Width 12.6 % (11.5-14.5); Red Blood Cell (RBC) Count 4.87 mill/uL (4.20-5.40); White Blood Cell (WBC) Count 13.3 thou/uL (4.8-10.8)
[2021-04-25 10:09] LABS: ALT (SGPT) 84 U/L (8-55); AST (SGOT) 176 U/L (5-34); Alkaline Phosphatase 64 U/L (40-110); Anion Gap 14 mmol/L (10-20); BUN (Urea Nitrogen) 18 mg/dL (9.8-20.1); Bilirubin, Total 0.9 mg/dL (0.2-1.2); Calc. Creatinine Clearance 85 mL/min (70-130); Calcium 9.1 mg/dL (7.8-10.44); Carbon Dioxide 26 mmol/L (23-31); Chloride 106 mmol/L (98-107); Globulin 3.8 g/dL (2.4-3.5); Glucose 126 mg/dL (80-115); Magnesium 1.8 mg/dL (1.6-2.6); Potassium 3.6 mmol/L (3.5-5.1); Protein, Total 6.8 g/dL (5.8-8.1); Sodium 142 mmol/L (136-145)
[2021-04-25] MEDS: Atorvastatin Calcium 40 MG TAB PO SCH (21:12)
[2021-04-26] MEDS: Acetaminophen 500 MG TAB PO SCH ×3 (04:46→22:14)
[2021-04-26 07:29] LABS: Hemoglobin 14.7 g/dL (12.0-16.0); Mean Corpuscular HGB CONC 34.3 g/dL (32.0-36.0); Mean Corpuscular Hemoglobin 30.2 pg (27.0-31.0); Mean Corpuscular Volume 88.2 fL (78.0-98.0); Mean Platelet Volume 6.4 fL (7.4-10.4); Platelet Count 438 thou/uL (130-400); RBC Distribution Width 12.7 % (11.5-14.5); Red Blood Cell (RBC) Count 4.86 mill/uL (4.20-5.40); White Blood Cell (WBC) Count 13.1 thou/uL (4.8-10.8)
[2021-04-26 07:48] LABS: ALT (SGPT) 89 U/L (8-55); AST (SGOT) 137 U/L (5-34); Albumin 3.1 g/dL (3.4-4.8); Alkaline Phosphatase 61 U/L (40-110); Anion Gap 14 mmol/L (10-20); BUN (Urea Nitrogen) 20 mg/dL (9.8-20.1); Bilirubin, Total 0.9 mg/dL (0.2-1.2); Calc. Creatinine Clearance 92 mL/min (70-130); Carbon Dioxide 22 mmol/L (23-31); Chloride 106 mmol/L (98-107); Globulin 3.7 g/dL (2.4-3.5); Glucose 122 mg/dL (80-115); Magnesium 1.8 mg/dL (1.6-2.6); Potassium 3.6 mmol/L (3.5-5.1); Protein, Total 6.8 g/dL (5.8-8.1); Sodium 138 mmol/L (136-145)
[2021-04-26 08:02] LABS: Hypersemented Neutrophil SLIGHT; Lymphocytes 3 % (21-51); MDiff Complete? YES; Monocytes 12 % (0-10); Neutrophil 85 % (42-75); Platelet Morphology Comment Appears Increased; Vacuoles SLIGHT
[2021-04-26] MEDS: Aspirin 325 MG TAB PO SCH (09:41)
[2021-04-26] MEDS: Clopidogrel Bisulfate 75 MG TAB PO SCH (09:42)
[2021-04-26] MEDS: Amlodipine 10 MG TAB PO SCH (09:42)
[2021-04-26] MEDS: Carvedilol 25 MG TAB PO SCH ×2 (09:42→16:27)
[2021-04-26] MEDS: Cyclobenzaprine 10 MG TAB PO SCH ×3 (09:42→22:14)
[2021-04-26] MEDS: Dexamethasone 4 mg/ml Vial SLOW IVP SCH (09:42)
[2021-04-26] MEDS: Gabapentin 100 MG CAP PO SCH ×3 (09:43→22:14)
[2021-04-26] MEDS: Hydrochlorothiazide 25 MG TAB PO SCH (09:43)
[2021-04-26] MEDS: Enoxaparin Sodium 40 MG/0.4 ML SYRINGE SC SCH (09:43)
[2021-04-26] MEDS: Senokot S 8.6-50 MG TAB PO SCH (09:44)
[2021-04-26] MEDS: Polyethylene Glycol 3350 17 GM Packet PO SCH (09:44)
[2021-04-26] MEDS: Lisinopril 20 MG TAB PO SCH (09:44)
[2021-04-26] MEDS: Stress 600 With Zinc 1 TAB PO SCH (09:44)
[2021-04-26] MEDS: Atorvastatin Calcium 40 MG TAB PO SCH (22:14)
[2021-04-27] MEDS: Acetaminophen 500 MG TAB PO SCH ×3 (04:11→21:03)
[2021-04-27 06:12] LABS: ALT (SGPT) 104 U/L (8-55); AST (SGOT) 124 U/L (5-34); Albumin 3.2 g/dL (3.4-4.8); Alkaline Phosphatase 61 U/L (40-110); Anion Gap 13 mmol/L (10-20); BUN (Urea Nitrogen) 23 mg/dL (9.8-20.1); Bilirubin, Total 0.8 mg/dL (0.2-1.2); Calc. Creatinine Clearance 80 mL/min (70-130); Calcium 9.2 mg/dL (7.8-10.44); Carbon Dioxide 25 mmol/L (23-31); Chloride 104 mmol/L (98-107); Globulin 3.7 g/dL (2.4-3.5); Glucose 121 mg/dL (80-115); Magnesium 1.9 mg/dL (1.6-2.6); Potassium 3.8 mmol/L (3.5-5.1); Protein, Total 6.9 g/dL (5.8-8.1); Sodium 138 mmol/L (136-145)
[2021-04-27 06:20] LABS: Band 4 % (5-11); Lymphocytes 3 % (21-51); MDiff Complete? YES; Mean Corpuscular HGB CONC 32.7 g/dL (32.0-36.0); Mean Corpuscular Volume 88.7 fL (78.0-98.0); Mean Platelet Volume 6.7 fL (7.4-10.4); Metamyelocyte 1 % (0-0); Monocytes 10 % (0-10); Neutrophil 82 % (42-75); Platelet Count 529 thou/uL (130-400); Platelet Morphology Comment Appears Increased; RBC Distribution Width 12.7 % (11.5-14.5); Red Blood Cell (RBC) Count 4.82 mill/uL (4.20-5.40); White Blood Cell (WBC) Count 21.1 thou/uL (4.8-10.8)
[2021-04-27] MEDS: Enoxaparin Sodium 40 MG/0.4 ML SYRINGE SC SCH (09:20)
[2021-04-27] MEDS: Lisinopril 20 MG TAB PO SCH (09:20)
[2021-04-27] MEDS: Gabapentin 100 MG CAP PO SCH ×3 (09:20→21:04)
[2021-04-27] MEDS: Polyethylene Glycol 3350 17 GM Packet PO SCH (09:20)
[2021-04-27] MEDS: Dexamethasone 4 mg/ml Vial SLOW IVP SCH (09:21)
[2021-04-27] MEDS: Cyclobenzaprine 10 MG TAB PO SCH ×3 (09:21→21:04)
[2021-04-27] MEDS: Stress 600 With Zinc 1 TAB PO SCH (09:21)
[2021-04-27] MEDS: Senokot S 8.6-50 MG TAB PO SCH (09:22)
[2021-04-27] MEDS: Amlodipine 10 MG TAB PO SCH (09:22)
[2021-04-27] MEDS: Clopidogrel Bisulfate 75 MG TAB PO SCH (09:22)
[2021-04-27] MEDS: Hydrochlorothiazide 25 MG TAB PO SCH (09:22)
[2021-04-27] MEDS: Aspirin 325 MG TAB PO SCH (09:22)
[2021-04-27] MEDS: Carvedilol 25 MG TAB PO SCH ×2 (09:23→17:01)
[2021-04-27] MEDS: Atorvastatin Calcium 40 MG TAB PO SCH (21:04)
[2021-04-28] MEDS: Acetaminophen 500 MG TAB PO SCH (03:28)
[2021-04-28 05:36] LABS: Band 1 % (5-11); Hemoglobin 13.7 g/dL (12.0-16.0); Lymphocytes 2 % (21-51); MDiff Complete? YES; Mean Corpuscular HGB CONC 33.8 g/dL (32.0-36.0); Mean Corpuscular Hemoglobin 30.1 pg (27.0-31.0); Mean Platelet Volume 6.7 fL (7.4-10.4); Monocytes 4 % (0-10); Neutrophil 93 % (42-75); Platelet Count 510 thou/uL (130-400); Platelet Morphology Comment Appears Adequate; RBC Distribution Width 13.1 % (11.5-14.5); RBC Morphology Normal; Red Blood Cell (RBC) Count 4.55 mill/uL (4.20-5.40); White Blood Cell (WBC) Count 21.7 thou/uL (4.8-10.8)
[2021-04-28 05:38] LABS: ALT (SGPT) 112 U/L (8-55); AST (SGOT) 104 U/L (5-34); Alkaline Phosphatase 57 U/L (40-110); Anion Gap 13 mmol/L (10-20); BUN (Urea Nitrogen) 36 mg/dL (9.8-20.1); Bilirubin, Total 0.6 mg/dL (0.2-1.2); Calc. Creatinine Clearance 68 mL/min (70-130); Calcium 8.9 mg/dL (7.8-10.44); Carbon Dioxide 23 mmol/L (23-31); Chloride 105 mmol/L (98-107); Globulin 3.4 g/dL (2.4-3.5); Glucose 130 mg/dL (80-115); Potassium 3.8 mmol/L (3.5-5.1); Protein, Total 6.4 g/dL (5.8-8.1); Sodium 137 mmol/L (136-145)
[2021-04-28] MEDS ORDERED: Acetaminophen 500 MG TAB PO PRN (05:49)
[2021-04-28] MEDS: Cyclobenzaprine 10 MG TAB PO SCH ×3 (08:21→22:06)
[2021-04-28] MEDS: Stress 600 With Zinc 1 TAB PO SCH (08:21)
[2021-04-28] MEDS: Senokot S 8.6-50 MG TAB PO SCH (08:22)
[2021-04-28] MEDS: Hydrochlorothiazide 25 MG TAB PO SCH (08:22)
[2021-04-28] MEDS: Aspirin 325 MG TAB PO SCH (08:22)
[2021-04-28] MEDS: Gabapentin 100 MG CAP PO SCH ×3 (08:23→22:07)
[2021-04-28] MEDS: Clopidogrel Bisulfate 75 MG TAB PO SCH (08:24)
[2021-04-28] MEDS: Amlodipine 10 MG TAB PO SCH (08:24)
[2021-04-28] MEDS: Lisinopril 20 MG TAB PO SCH (08:24)
[2021-04-28] MEDS: Carvedilol 25 MG TAB PO SCH ×2 (08:25→17:07)
[2021-04-28] MEDS: Dexamethasone 4 mg/ml Vial SLOW IVP SCH (08:25)
[2021-04-28] MEDS: Enoxaparin Sodium 40 MG/0.4 ML SYRINGE SC SCH (08:25)
[2021-04-28] MEDS: Polyethylene Glycol 3350 17 GM Packet PO SCH (08:26)
[2021-04-28] MEDS ORDERED: Lactated Ringer's 1,000 ML IV SCH (10:45)
[2021-04-28] MEDS: Atorvastatin Calcium 40 MG TAB PO SCH (22:07)
[2021-04-29 05:12] LABS: ALT (SGPT) 106 U/L (8-55); AST (SGOT) 85 U/L (5-34); Albumin 2.9 g/dL (3.4-4.8); Alkaline Phosphatase 52 U/L (40-110); Anion Gap 10 mmol/L (10-20); BUN (Urea Nitrogen) 36 mg/dL (9.8-20.1); Bilirubin, Total 0.6 mg/dL (0.2-1.2); Calc. Creatinine Clearance 78 mL/min (70-130); Calcium 8.9 mg/dL (7.8-10.44); Carbon Dioxide 21 mmol/L (23-31); Chloride 108 mmol/L (98-107); Globulin 3.2 g/dL (2.4-3.5); Glucose 123 mg/dL (80-115); Potassium 3.6 mmol/L (3.5-5.1); Protein, Total 6.1 g/dL (5.8-8.1); Sodium 135 mmol/L (136-145)
[2021-04-29 05:13] LABS: Hemoglobin 12.7 g/dL (12.0-16.0); Lymphocytes 7 % (21-51); MDiff Complete? YES; Mean Corpuscular HGB CONC 32.8 g/dL (32.0-36.0); Mean Corpuscular Hemoglobin 29.4 pg (27.0-31.0); Mean Corpuscular Volume 89.5 fL (78.0-98.0); Mean Platelet Volume 6.9 fL (7.4-10.4); Metamyelocyte 2 % (0-0); Monocytes 5 % (0-10); Neutrophil 86 % (42-75); Platelet Count 532 thou/uL (130-400); Platelet Morphology Comment Appears Increased; RBC Distribution Width 13.3 % (11.5-14.5); Red Blood Cell (RBC) Count 4.31 mill/uL (4.20-5.40); White Blood Cell (WBC) Count 22.3 thou/uL (4.8-10.8)
[2021-04-29] MEDS: Polyethylene Glycol 3350 17 GM Packet PO SCH (08:48)
[2021-04-29] MEDS: Senokot S 8.6-50 MG TAB PO SCH (08:48)
[2021-04-29] MEDS: Gabapentin 100 MG CAP PO SCH ×3 (08:50→20:48)
[2021-04-29] MEDS: Aspirin 325 MG TAB PO SCH (08:50)
[2021-04-29] MEDS: Cyclobenzaprine 10 MG TAB PO SCH ×3 (08:51→20:48)
[2021-04-29] MEDS: Enoxaparin Sodium 40 MG/0.4 ML SYRINGE SC SCH (08:52)
[2021-04-29] MEDS: Clopidogrel Bisulfate 75 MG TAB PO SCH (08:52)
[2021-04-29] MEDS: Stress 600 With Zinc 1 TAB PO SCH (08:52)
[2021-04-29] MEDS: Dexamethasone 4 mg/ml Vial SLOW IVP SCH (09:16)
[2021-04-29] MEDS: Hydrochlorothiazide 25 MG TAB PO SCH (09:28)
[2021-04-29] MEDS: Lisinopril 20 MG TAB PO SCH (09:31)
[2021-04-29] MEDS: Carvedilol 25 MG TAB PO SCH ×2 (09:31→16:38)
[2021-04-29] MEDS: Atorvastatin Calcium 40 MG TAB PO SCH (20:49)
[2021-04-30 05:04] LABS: Hemoglobin 12.2 g/dL (12.0-16.0); Lymphocytes 9 % (21-51); MDiff Complete? YES; Mean Corpuscular HGB CONC 32.2 g/dL (32.0-36.0); Mean Corpuscular Hemoglobin 28.9 pg (27.0-31.0); Mean Corpuscular Volume 89.9 fL (78.0-98.0); Mean Platelet Volume 6.8 fL (7.4-10.4); Monocytes 4 % (0-10); Neutrophil 87 % (42-75); Platelet Count 551 thou/uL (130-400); Platelet Morphology Comment Appears Increased; RBC Distribution Width 13.7 % (11.5-14.5); RBC Morphology Normal; Red Blood Cell (RBC) Count 4.23 mill/uL (4.20-5.40); White Blood Cell (WBC) Count 19.6 thou/uL (4.8-10.8)
[2021-04-30 05:12] LABS: ALT (SGPT) 111 U/L (8-55); AST (SGOT) 77 U/L (5-34); Albumin 2.9 g/dL (3.4-4.8); Alkaline Phosphatase 49 U/L (40-110); Anion Gap 12 mmol/L (10-20); BUN (Urea Nitrogen) 31 mg/dL (9.8-20.1); Bilirubin, Total 0.5 mg/dL (0.2-1.2); Calc. Creatinine Clearance 81 mL/min (70-130); Calcium 8.8 mg/dL (7.8-10.44); Carbon Dioxide 21 mmol/L (23-31); Chloride 110 mmol/L (98-107); Globulin 3.1 g/dL (2.4-3.5); Glucose 130 mg/dL (80-115); Potassium 4.1 mmol/L (3.5-5.1); Sodium 139 mmol/L (136-145)
[2021-04-30] MEDS ORDERED: Cyclobenzaprine 10 MG TAB PO PRN (08:45)
[2021-04-30] MEDS: Stress 600 With Zinc 1 TAB PO SCH (09:57)
[2021-04-30] MEDS: Lisinopril 20 MG TAB PO SCH (09:58)
[2021-04-30] MEDS: Clopidogrel Bisulfate 75 MG TAB PO SCH (09:58)
[2021-04-30] MEDS: Senokot S 8.6-50 MG TAB PO SCH (09:58)
[2021-04-30] MEDS: Dexamethasone 4 mg/ml Vial SLOW IVP SCH (09:59)
[2021-04-30] MEDS: Aspirin 325 MG TAB PO SCH (09:59)
[2021-04-30] MEDS: Carvedilol 25 MG TAB PO SCH ×2 (10:00→17:33)
[2021-04-30] MEDS: Enoxaparin Sodium 40 MG/0.4 ML SYRINGE SC SCH (10:00)
[2021-04-30] MEDS: Gabapentin 100 MG CAP PO SCH ×3 (10:01→20:43)
[2021-04-30] MEDS: Polyethylene Glycol 3350 17 GM Packet PO SCH (10:01)
[2021-04-30] MEDS: Atorvastatin Calcium 40 MG TAB PO SCH (20:43)
[2021-05-01 09:16] LABS: Final Culture No virus isolated. (.)
[2021-05-01] MEDS: Senokot S 8.6-50 MG TAB PO SCH (09:17)
[2021-05-01] MEDS: Stress 600 With Zinc 1 TAB PO SCH (09:17)
[2021-05-01] MEDS: Clopidogrel Bisulfate 75 MG TAB PO SCH (09:17)
[2021-05-01] MEDS: Lisinopril 20 MG TAB PO SCH (09:17)
[2021-05-01] MEDS: Aspirin 325 MG TAB PO SCH (09:17)
[2021-05-01] MEDS: Enoxaparin Sodium 40 MG/0.4 ML SYRINGE SC SCH (09:17)
[2021-05-01] MEDS: Carvedilol 25 MG TAB PO SCH ×2 (09:17→17:02)
[2021-05-01] MEDS: Dexamethasone 4 mg/ml Vial SLOW IVP SCH (09:18)
[2021-05-01] MEDS: Gabapentin 100 MG CAP PO SCH ×3 (09:18→20:36)
[2021-05-01] MEDS: Polyethylene Glycol 3350 17 GM Packet PO SCH (09:19)
[2021-05-01] MEDS: Atorvastatin Calcium 40 MG TAB PO SCH (20:36)
[2021-05-02 05:42] LABS: #Lymphocytes 0.8 thou/uL (1.20-3.40); #Monocytes 1.4 thou/uL (0.11-0.59); #Neutrophils 11.6 thou/uL (1.40-6.50); %Eosinophils 0.1 % (0.0-10.0); %Lymphocytes 5.8 % (21.0-51.0); %Monocytes 9.8 % (0.0-10.0); %Neutrophils 84.3 % (42.0-75.0); Hemoglobin 12.4 g/dL (12.0-16.0); Mean Corpuscular HGB CONC 32.2 g/dL (32.0-36.0); Mean Corpuscular Hemoglobin 29.2 pg (27.0-31.0); Mean Corpuscular Volume 90.6 fL (78.0-98.0); Mean Platelet Volume 6.5 fL (7.4-10.4); Platelet Count 492 thou/uL (130-400); RBC Distribution Width 13.9 % (11.5-14.5); Red Blood Cell (RBC) Count 4.24 mill/uL (4.20-5.40); White Blood Cell (WBC) Count 13.8 thou/uL (4.8-10.8)
[2021-05-02 06:06] LABS: ALT (SGPT) 167 U/L (8-55); AST (SGOT) 105 U/L (5-34); Albumin 2.9 g/dL (3.4-4.8); Alkaline Phosphatase 50 U/L (40-110); Anion Gap 9 mmol/L (10-20); BUN (Urea Nitrogen) 27 mg/dL (9.8-20.1); Bilirubin, Total 0.6 mg/dL (0.2-1.2); Calc. Creatinine Clearance 89 mL/min (70-130); Calcium 8.6 mg/dL (7.8-10.44); Carbon Dioxide 22 mmol/L (23-31); Chloride 111 mmol/L (98-107); Glucose 117 mg/dL (80-115); Potassium 4.2 mmol/L (3.5-5.1); Protein, Total 5.9 g/dL (5.8-8.1); Sodium 138 mmol/L (136-145)
[2021-05-02] MEDS: Enoxaparin Sodium 40 MG/0.4 ML SYRINGE SC SCH (08:18)
[2021-05-02] MEDS: Stress 600 With Zinc 1 TAB PO SCH (08:19)
[2021-05-02] MEDS: Gabapentin 100 MG CAP PO SCH ×3 (08:19→21:31)
[2021-05-02] MEDS: Senokot S 8.6-50 MG TAB PO SCH (08:19)
[2021-05-02] MEDS: Clopidogrel Bisulfate 75 MG TAB PO SCH (08:19)
[2021-05-02] MEDS: Aspirin 325 MG TAB PO SCH (08:20)
[2021-05-02] MEDS: Lisinopril 20 MG TAB PO SCH (08:20)
[2021-05-02] MEDS: Carvedilol 25 MG TAB PO SCH ×2 (08:21→16:02)
[2021-05-02] MEDS: Polyethylene Glycol 3350 17 GM Packet PO SCH (08:21)
[2021-05-02] MEDS: Dexamethasone 4 mg/ml Vial SLOW IVP SCH (08:41)
[2021-05-02] MEDS: Atorvastatin Calcium 40 MG TAB PO SCH (21:32)
[2021-05-03] MEDS ORDERED: predniSONE 20 MG TAB PO SCH (07:45)
[2021-05-03] MEDS: Polyethylene Glycol 3350 17 GM Packet PO SCH (08:40)
[2021-05-03] MEDS: Lisinopril 20 MG TAB PO SCH (08:41)
[2021-05-03] MEDS: Clopidogrel Bisulfate 75 MG TAB PO SCH (08:41)
[2021-05-03] MEDS: Aspirin 325 MG TAB PO SCH (08:41)
[2021-05-03] MEDS: Senokot S 8.6-50 MG TAB PO SCH (08:41)
[2021-05-03] MEDS: Gabapentin 100 MG CAP PO SCH ×4 (08:41→20:55)
[2021-05-03] MEDS: Carvedilol 25 MG TAB PO SCH ×2 (08:42→16:27)
[2021-05-03] MEDS: Enoxaparin Sodium 40 MG/0.4 ML SYRINGE SC SCH (08:42)
[2021-05-03] MEDS: Stress 600 With Zinc 1 TAB PO SCH (08:42)
[2021-05-03] MEDS: Atorvastatin Calcium 40 MG TAB PO SCH (20:56)
[2021-05-04 05:43] LABS: ALT (SGPT) 167 U/L (8-55); AST (SGOT) 81 U/L (5-34); Albumin 2.9 g/dL (3.4-4.8); Alkaline Phosphatase 50 U/L (40-110); Anion Gap 11 mmol/L (10-20); BUN (Urea Nitrogen) 22 mg/dL (9.8-20.1); Bilirubin, Total 0.7 mg/dL (0.2-1.2); Calc. Creatinine Clearance 92 mL/min (70-130); Calcium 8.6 mg/dL (7.8-10.44); Carbon Dioxide 19 mmol/L (23-31); Chloride 107 mmol/L (98-107); Glucose 95 mg/dL (80-115); Potassium 4.8 mmol/L (3.5-5.1); Protein, Total 5.9 g/dL (5.8-8.1); Sodium 132 mmol/L (136-145)
[2021-05-04 07:31] LABS: #Lymphocytes 1.6 thou/uL (1.20-3.40); #Monocytes 1.5 thou/uL (0.11-0.59); #Neutrophils 8.4 thou/uL (1.40-6.50); %Basophils 0.2 % (0.0-1.0); %Eosinophils 0.1 % (0.0-10.0); %Lymphocytes 13.6 % (21.0-51.0); %Monocytes 13.2 % (0.0-10.0); %Neutrophils 72.9 % (42.0-75.0); Hemoglobin 12.5 g/dL (12.0-16.0); Mean Corpuscular HGB CONC 31.6 g/dL (32.0-36.0); Mean Corpuscular Hemoglobin 28.8 pg (27.0-31.0); Mean Corpuscular Volume 91.1 fL (78.0-98.0); Mean Platelet Volume 6.4 fL (7.4-10.4); Platelet Count 497 thou/uL (130-400); RBC Distribution Width 13.6 % (11.5-14.5); Red Blood Cell (RBC) Count 4.36 mill/uL (4.20-5.40); White Blood Cell (WBC) Count 11.5 thou/uL (4.8-10.8)
[2021-05-04] MEDS: Carvedilol 25 MG TAB PO SCH ×2 (09:30→16:23)
[2021-05-04] MEDS: Enoxaparin Sodium 40 MG/0.4 ML SYRINGE SC SCH (09:30)
[2021-05-04] MEDS: Aspirin 325 MG TAB PO SCH (09:30)
[2021-05-04] MEDS: Clopidogrel Bisulfate 75 MG TAB PO SCH (09:30)
[2021-05-04] MEDS: Lisinopril 20 MG TAB PO SCH (09:31)
[2021-05-04] MEDS: Stress 600 With Zinc 1 TAB PO SCH (09:31)
[2021-05-04] MEDS: Gabapentin 100 MG CAP PO SCH ×3 (09:31→21:35)
[2021-05-04] MEDS: Polyethylene Glycol 3350 17 GM Packet PO SCH (09:32)
[2021-05-04] MEDS: Senokot S 8.6-50 MG TAB PO SCH (09:32)
[2021-05-04] MEDS ORDERED: predniSONE 20 MG TAB PO SCH (09:45)
[2021-05-04] MEDS: Atorvastatin Calcium 40 MG TAB PO SCH (21:36)
[2021-05-05] MEDS ORDERED: predniSONE 20 MG TAB PO SCH (08:00)
[2021-05-05 09:19] LABS: Anion Gap 9 mmol/L (10-20); BUN (Urea Nitrogen) 20 mg/dL (9.8-20.1); Calc. Creatinine Clearance 85 mL/min (70-130); Calcium 9.1 mg/dL (7.8-10.44); Carbon Dioxide 27 mmol/L (23-31); Chloride 104 mmol/L (98-107); Glucose 89 mg/dL (80-115); Potassium 4.4 mmol/L (3.5-5.1); Sodium 136 mmol/L (136-145)
[2021-05-05] MEDS: Lisinopril 20 MG TAB PO SCH (09:29)
[2021-05-05] MEDS: Gabapentin 100 MG CAP PO SCH ×3 (09:31→21:13)
[2021-05-05] MEDS: Senokot S 8.6-50 MG TAB PO SCH (09:31)
[2021-05-05] MEDS: Aspirin 325 MG TAB PO SCH (09:32)
[2021-05-05] MEDS: Clopidogrel Bisulfate 75 MG TAB PO SCH (09:32)
[2021-05-05] MEDS: Enoxaparin Sodium 40 MG/0.4 ML SYRINGE SC SCH (09:32)
[2021-05-05] MEDS: Polyethylene Glycol 3350 17 GM Packet PO SCH (09:32)
[2021-05-05] MEDS: Carvedilol 25 MG TAB PO SCH ×2 (09:32→21:14)
[2021-05-05] MEDS: Stress 600 With Zinc 1 TAB PO SCH (09:38)
[2021-05-05] MEDS ORDERED: Lactated Ringer's 500 ML IV SCH (15:45)
[2021-05-05] MEDS: Atorvastatin Calcium 40 MG TAB PO SCH (21:14)
[2021-05-06 05:16] LABS: #Eosinphils 0.1 thou/uL (0.0-0.7); #Lymphocytes 1.1 thou/uL (1.20-3.40); #Monocytes 1.3 thou/uL (0.11-0.59); #Neutrophils 11.2 thou/uL (1.40-6.50); %Basophils 0.2 % (0.0-1.0); %Eosinophils 0.4 % (0.0-10.0); %Monocytes 9.5 % (0.0-10.0); %Neutrophils 81.9 % (42.0-75.0); Hemoglobin 12.6 g/dL (12.0-16.0); Mean Corpuscular Hemoglobin 29.9 pg (27.0-31.0); Mean Corpuscular Volume 90.5 fL (78.0-98.0); Mean Platelet Volume 6.3 fL (7.4-10.4); Platelet Count 382 thou/uL (130-400); RBC Distribution Width 14.1 % (11.5-14.5); Red Blood Cell (RBC) Count 4.22 mill/uL (4.20-5.40); White Blood Cell (WBC) Count 13.6 thou/uL (4.8-10.8)
[2021-05-06 06:02] LABS: ALT (SGPT) 163 U/L (8-55); AST (SGOT) 69 U/L (5-34); Albumin 2.9 g/dL (3.4-4.8); Alkaline Phosphatase 50 U/L (40-110); Anion Gap 5 mmol/L (10-20); BUN (Urea Nitrogen) 22 mg/dL (9.8-20.1); Bilirubin, Total 0.7 mg/dL (0.2-1.2); Calc. Creatinine Clearance 80 mL/min (70-130); Calcium 8.9 mg/dL (7.8-10.44); Carbon Dioxide 30 mmol/L (23-31); Chloride 104 mmol/L (98-107); Globulin 2.9 g/dL (2.4-3.5); Glucose 102 mg/dL (80-115); Potassium 4.4 mmol/L (3.5-5.1); Protein, Total 5.8 g/dL (5.8-8.1); Sodium 135 mmol/L (136-145)
[2021-05-06] MEDS ORDERED: predniSONE 20 MG TAB PO SCH (08:00)
[2021-05-06] MEDS ORDERED: Senokot S 8.6-50 MG TAB PO SCH (09:00)
[2021-05-06] MEDS: Enoxaparin Sodium 40 MG/0.4 ML SYRINGE SC SCH (09:12)
[2021-05-06] MEDS: Polyethylene Glycol 3350 17 GM Packet PO SCH (09:13)
[2021-05-06] MEDS: Lisinopril 20 MG TAB PO SCH (09:13)
[2021-05-06] MEDS: Gabapentin 100 MG CAP PO SCH (09:14)
[2021-05-06] MEDS: Carvedilol 25 MG TAB PO SCH (09:14)
[2021-05-06] MEDS: Clopidogrel Bisulfate 75 MG TAB PO SCH (09:14)
[2021-05-06] MEDS: Aspirin 325 MG TAB PO SCH (09:14)
[2021-05-06] MEDS: Stress 600 With Zinc 1 TAB PO SCH (09:20)
[2021-05-06 09:55] VITALS: BMI 26.3
[2021-05-06 11:33] VITALS: TEMP 97.9
[2021-05-06 11:53] VITALS: BP 140/67
== END 2021-05-06 13:04 | DRG 871 ==
LOC: ERS 12:58 → 2NO 15:39 → 2SE 21:20 → 2SW 04-21 16:56 → 2SE 04-26 12:45
PROVIDERS: ADMIT Student in an Organized Health Care Education/Training Program; ATTEND Student in an Organized Health Care Education/Training Program
PROC: 009U3ZX Drainage of Spinal Canal, Percutaneous Approach, Diagnostic (ICD-10-PCS; principal; 2021-04-22)
PROC: B01B1ZZ Fluoroscopy of Spinal Cord using Low Osmolar Contrast (ICD-10-PCS; 2021-04-22)
DX: A41.89 Other specified sepsis (principal); U07.1 COVID-19; J12.82 Pneumonia due to coronavirus disease 2019; G95.11 Acute infarction of spinal cord (embolic) (nonembolic); M62.82 Rhabdomyolysis; N17.9 Acute kidney failure, unspecified; I48.92 Unspecified atrial flutter; I50.22 Chronic systolic (congestive) heart failure; E87.1 Hypo-osmolality and hyponatremia; I25.10 Atherosclerotic heart disease of native coronary artery without angina pectoris; E78.5 Hyperlipidemia, unspecified; E78.00 Pure hypercholesterolemia, unspecified; I11.0 Hypertensive heart disease with heart failure; R74.01 Elevation of levels of liver transaminase levels; R77.8 Other specified abnormalities of plasma proteins; R51.9 Headache, unspecified; M62.838 Other muscle spasm; E86.0 Dehydration; E87.6 Hypokalemia; I25.5 Ischemic cardiomyopathy; I95.1 Orthostatic hypotension; D47.3 Essential (hemorrhagic) thrombocythemia; Z95.810 Presence of automatic (implantable) cardiac defibrillator; Z91.81 History of falling
CPT/HCPCS: 36415; 36416; 62270; 70450; 70496; 70498; 71045; 72125; 80048; 80053; 80306; 80307; 81001; 82550; 82553; 82607; 82746; 82945; 83605; 83690; 83735; 83880; 84100; 84145; 84157; 84425; 84443; 84484; 85025; 85610; 85652; 85730; 86038; 86140; 86225; 86769; 86780; 87040; 87070; 87086; 87205; 87252; 87389; 89051; 93005; 93010; 93306; 93923; 96365; 96366; 96367; J0360; J0456; J0692; J0696; J1100; J1650; J2270; J2405; J3475; J3480; J3490; J7050; J7512; Q9967; U0003; U0005